=== PATIENT | male | born 1960 | race Caucasian/White ===

== ENCOUNTER → 2020-01-05 | Day surgery (SDC) | payer BC, OTHER ==
[2019-12-31 10:18] LABS: BASOPHILS % 0.3 % (0.0-1.0); EOSINOPHILS # (AUTO) 0.2 (0.0-0.4); EOSINOPHILS % 3.7 % (0.0-6.0); HEMATOCRIT 41.4 % (38.2-49.6); HEMOGLOBIN 14.2 g/dL (14.0-18.0); LYMPHOCYTES # (AUTO) 2.1 (1.0-3.2); LYMPHOCYTES % 32.7 % (18.0-39.1); MEAN CORPUSCULAR HEMOGLOBIN 30.2 pg (28-32); MEAN CORPUSCULAR HGB CONC 34.3 g/dL (31-35); MEAN CORPUSCULAR VOLUME 88.1 fL (81-99); MONOCYTES # (AUTO) 0.7 (0.2-0.8); MONOCYTES % 10.9 % (4.4-11.3); NEUTROPHILS # (AUTO) 3.4 (2.1-6.9); NEUTROPHILS % 52.1 % (38.7-80.0); PLATELET COUNT 272 x10e3/uL (140-360); RED CELL DISTRIBUTION WIDTH 11.8 % (11.7-14.4)
[2019-12-31 14:28] LABS: ALANINE AMINOTRANSFERASE 45 IU/L (0-55); ALBUMIN 4.4 g/dL (3.5-5.0); ALBUMIN/GLOBULIN RATIO 1.4 (0.8-2.0); ALKALINE PHOSPHATASE 60 IU/L (40-150); BLOOD UREA NITROGEN 14 mg/dL (7-26); BUN/CREATININE RATIO 12 (6-25); CALCIUM 9.4 mg/dL (8.4-10.2); CARBON DIOXIDE 24 mmol/L (22-29); CHLORIDE 103 mmol/L (98-107); CREATININE, SERUM 1.16 mg/dL (0.72-1.25); EST GLOMERULAR FILTRATION RATE > 60 ML/MIN (60-); GLUCOSE 141 mg/dL (74-118); SODIUM 140 mmol/L (136-145)
[2020-01-05] VITALS (19 sets, daily range): BP systolic 89–132; BP diastolic 35–74
[~2020-01-05] VITALS: Ht 182.9 cm; Wt 99.8 kg
[~2020-01-05] MED LIST: ALPRAZOLAM 0.5 MG TAB ONE; AMLODIPINE BESYL5 MG PO; ASPIR 8181 MG PO; ASPIRIN 325 MG TAB ONE; BIVALRIUDIN 250 MG/VIAL VIAL IV ONE; CRESTOR10 MG PO; DIPHENHYDRAMINE HCL 25 MG CAP ONE; FENTANYL CITRATE/PF 100MCG/2 ML INJ ONE; HEPARIN SOD/SOD CHLORIDE 2,000 ML ONE; IOPAMIDOL 370 MG/ML 200 ML INFUS..BTL INJ ONE; LIDOCAINE HCL 2% LOCAL 20 ML VIAL ONE; LISINOPRIL10 MG PO; LISINOPRIL2.5 MG PO; METOPROLOL SUCC25 MG; MIDAZOLAM HCL 2 MG/2 ML VIAL ONE; SODIUM CHLORIDE 0.9% 1000ML 1,000 ML ONE; SODIUM CHLORIDE 0.9% 50ML 50 ML ONE; TICAGRELOR 90 MG TABLET ONE; VERAPAMIL HCL 2.5 MG/ML 2 ML VIAL ONE
--- NOTE | 2020-01-05 13:09 | Operative Report ---
DATE OF PROCEDURE: 01/05/2020 SURGEON: Sean Palomares MD INDICATION: Coronary artery disease, angina with abnormal stress test. COMPLICATIONS: None. BLOOD LOSS: Minimal. RECOMMENDATIONS: Dual antiplatelet therapy for at least 6 months. PROCEDURES PERFORMED: 1. Ultrasound-guided access in the right radial artery with sheath placement. 2. Conscious sedation administration, hemodynamic neurological monitoring in recovery by cardiac catheterization technologist RN, supervision by MD, 65 minutes. 3. Left heart catheterization, selective coronary angiography. 4. Stent placement in mid left anterior descending artery. 5. Deployment of right wrist TR band. DESCRIPTION OF PROCEDURE: Access obtained in the right radial artery using ultrasound guidance, a 5-[place] sheath was placed. Coronary angiography demonstrated calcified left coronary system. Circumflex was dominant, [place] circumflex 50% stenosis, remaining vessels had diffuse 30% to 50% stenosis. Left anterior descending artery was calcified, mid left anterior descending artery 70% to 80% stenosis proximally, 30% to 50% stenosis. Right coronary artery was codominant 30% to 50% stenosis diffusely. LV end-diastolic pressure of 10. No gradient across the aortic valve on pullback. A decision was made to intervene on the left anterior descending artery. The patient received intravenous Angiomax, oral prasugrel, and aspirin for anticoagulation. The left main was cannulated using an EBU 3.755-[place] guiding catheter. A short BMW wire was advanced for support. Primary stent 2.5 x 20 mm Synergy was deployed at 22 atmospheres. Excellent end result, less than 10% residual stenosis, ROCHELLE-3 flow. No complications. Wire and guide sheath removed. TR band applied. The patient discharged home same day. Sean Palomares MD [facility] /[id number]
--- NOTE | 2020-01-05 16:15 | NUR ---
IV to left forearm removed and dressing placed per unit protocol. Dressing to right wrist is clean, dry, and intact. Right wrist support in place. Patient discharged to private vehicle with Patient's son's girlfriend Araceli Nguyen as six horse hitch driver. Patient discharged with belongings. No distress noted at time of discharge.
== END | disposition home or self-care (01) ==
LOC: CATH LAB 05:51
PROVIDERS: ATTEND Internal Medicine Interventional Cardiology
DX: I25.119 Atherosclerotic heart disease of native coronary artery with unspecified angina pectoris (principal); R94.39 Abnormal result of other cardiovascular function study; I10 Essential (primary) hypertension; Z01.812 Encounter for preprocedural laboratory examination; Z11.59 Encounter for screening for other viral diseases
CPT/HCPCS: 36415; 76937; 80053; 85025; 87635; 92928; 93458; C1887; C1894; J0583; J2001; J2250; J3010; J7030; Q9967; 99152; 99153

== ENCOUNTER → 2022-10-09 | Day surgery (SDC) | payer BC ==
[2022-10-05 10:29] LABS: BASOPHILS % 0.4 % (0.0-1.0); EOSINOPHILS # (AUTO) 0.3 (0.0-0.4); EOSINOPHILS % 4.8 % (0.0-6.0); HEMATOCRIT 40.3 % (38.2-49.6); HEMOGLOBIN 13.7 g/dL (14.0-18.0); LYMPHOCYTES # (AUTO) 2.1 (1.0-3.2); LYMPHOCYTES % 37.1 % (18.0-39.1); MEAN CORPUSCULAR HEMOGLOBIN 30.5 pg (28-32); MEAN CORPUSCULAR VOLUME 89.8 fL (81-99); MONOCYTES # (AUTO) 0.7 (0.2-0.8); MONOCYTES % 11.9 % (4.4-11.3); NEUTROPHILS # (AUTO) 2.6 (2.1-6.9); NEUTROPHILS % 45.6 % (38.7-80.0); PLATELET COUNT 252 x10e3/uL (140-360); RED BLOOD COUNT 4.49 x10e6/uL (4.3-5.7); RED CELL DISTRIBUTION WIDTH 11.6 % (11.7-14.4)
[2022-10-05 10:52] LABS: ALBUMIN 4.2 g/dL (3.5-5.0); ALBUMIN/GLOBULIN RATIO 1.4 (0.8-2.0); CALCIUM 9.9 mg/dL (8.4-10.2); CHOL/HDL RATIO 5.5 (3.9-4.7); CREATININE, SERUM 1.07 mg/dL (0.72-1.25)
[~2022-10-09] VITALS: Ht 182.9 cm; Wt 104.3 kg
[2022-10-09] VITALS (21 sets, daily range): BP systolic 106–130; BP diastolic 59–84
[~2022-10-09] MED LIST changes: +HEPARIN SOD (PORCINE) 1000 UNIT/ML 30ML ONE; +IOPAMIDOL 370 MG/ML 100 ML INFUS..BTL INJ ONE; -IOPAMIDOL 370 MG/ML 200 ML INFUS..BTL INJ ONE; +LOTREL 5-20 MG1 EACH; +METFORMIN HCL500 MG PO; +NITROGLYCERIN/D5W 200 MCG/ML 250 ML ONE; +PRASUGREL 10 MG TAB ONE; +PRISTIQ ER50 MG PO; +REPATHA; -SODIUM CHLORIDE 0.9% 50ML 50 ML ONE; -TICAGRELOR 90 MG TABLET ONE
== END | disposition home or self-care (01) ==
LOC: CATH LAB 14:08
PROVIDERS: ATTEND Internal Medicine Interventional Cardiology
DX: I25.118 Atherosclerotic heart disease of native coronary artery with other forms of angina pectoris (principal); I10 Essential (primary) hypertension; E78.00 Pure hypercholesterolemia, unspecified; Z01.812 Encounter for preprocedural laboratory examination; Z79.84 Long term (current) use of oral hypoglycemic drugs; Z79.82 Long term (current) use of aspirin; Z79.899 Other long term (current) drug therapy; Z68.32 Body mass index [BMI] 32.0-32.9, adult
CPT/HCPCS: 36415; 80053; 80061; 83880; 85025; 93454; C1725; C1874; C1887; C1894; J0583; J1644; J2001; J2250; J3010; J7030; Q9967; 92928

== ENCOUNTER → 2024-02-12 | Day surgery (SDC) | payer MEDICARE ==
[2024-02-11 11:12] LABS: BASOPHILS % 0.3 % (0.0-1.0); EOSINOPHILS # (AUTO) 0.3 (0.0-0.4); EOSINOPHILS % 4.2 % (0.0-6.0); HEMATOCRIT 38.5 % (38.2-49.6); HEMOGLOBIN 13.1 g/dL (14.0-18.0); LYMPHOCYTES # (AUTO) 1.9 (1.0-3.2); MEAN CORPUSCULAR HEMOGLOBIN 30.7 pg (28-32); MEAN CORPUSCULAR VOLUME 90.2 fL (81-99); MONOCYTES # (AUTO) 0.7 (0.2-0.8); MONOCYTES % 10.5 % (4.4-11.3); NEUTROPHILS # (AUTO) 3.4 (2.1-6.9); NEUTROPHILS % 54.7 % (38.7-80.0); PLATELET COUNT 285 x10e3/uL (140-360); RED BLOOD COUNT 4.27 x10e6/uL (4.3-5.7); RED CELL DISTRIBUTION WIDTH 11.9 % (11.7-14.4); WHITE BLOOD COUNT 6.19 x10e3/uL (4.8-10.8)
[2024-02-11 11:28] LABS: ANION GAP 13.9 mmol/L (8-16); CALCIUM 9.5 mg/dL (8.4-10.2); CREATININE, SERUM 1.1 mg/dL (0.72-1.25); POTASSIUM 3.9 mmol/L (3.5-5.1)
[~2024-02-12] MED LIST changes: +ACETAMINOPHEN 1000 MG/100 ML IV ONE; -ALPRAZOLAM 0.5 MG TAB ONE; -ASPIRIN 325 MG TAB ONE; -BIVALRIUDIN 250 MG/VIAL VIAL IV ONE; +CEFTRIAXONE 1 GM VIAL ONE; +CLOPIDOGREL75 MG PO; +DEXAMETHASONE SOD PHOS INJ 4 MG/ML SDV ONE; -DIPHENHYDRAMINE HCL 25 MG CAP ONE; +FLOMAX0.4 MG PO; +GENTAMICIN 80MG/NS 100 ML 200 ML IV ONE; -HEPARIN SOD (PORCINE) 1000 UNIT/ML 30ML ONE; -HEPARIN SOD/SOD CHLORIDE 2,000 ML ONE; -IOPAMIDOL 370 MG/ML 100 ML INFUS..BTL INJ ONE; +IOPAMIDOL 610MG/1ML 300 MG/ML VIAL IV ONE; +LACTATED RINGER'S 1,000 ML ONE; -LIDOCAINE HCL 2% LOCAL 20 ML VIAL ONE; +LIDOCAINE HCL 2% LOCAL INJ 5 ML SDV VIAL INJ ONE; -MIDAZOLAM HCL 2 MG/2 ML VIAL ONE; +MULTI-VITAMIN1 EACH PO; -NITROGLYCERIN/D5W 200 MCG/ML 250 ML ONE; +ONDANSETRON HCL INJ 2MG/ML 2ML 2 MG/ML VIAL ONE; +PHENAZOPYRIDINE HCL 100 MG TAB ONE; -PRASUGREL 10 MG TAB ONE; +PROPOFOL IV EMULSION 10 MG/ML 20 ML VIAL ONE; -REPATHA; +REPATHA IM; +SEVOFLURANE INHAL SOLN 250 ML PEN BTL ONE; -SODIUM CHLORIDE 0.9% 1000ML 1,000 ML ONE; -VERAPAMIL HCL 2.5 MG/ML 2 ML VIAL ONE; +VESICARE5 MG PO; +VITAMIN D3 COM1 EACH PO; +tylenol #3 PO
[2024-02-12] MEDS: PHENAZOPYRIDINE HCL 100 MG TAB PO ONE (15:13)
[2024-02-12 15:15] VITALS: TEMP 98.3
[2024-02-12 15:35] VITALS: BP 147/78; PULSE 61; RESP 16; O2SAT 99
== END | disposition home or self-care (01) ==
LOC: OR 07:59
PROVIDERS: ATTEND Urology
DX: N20.0 Calculus of kidney (principal); Z46.6 Encounter for fitting and adjustment of urinary device; N40.0 Benign prostatic hyperplasia without lower urinary tract symptoms; E11.9 Type 2 diabetes mellitus without complications; I10 Essential (primary) hypertension; E78.5 Hyperlipidemia, unspecified; Z01.812 Encounter for preprocedural laboratory examination; Z01.818 Encounter for other preprocedural examination; Z79.02 Long term (current) use of antithrombotics/antiplatelets; Z79.82 Long term (current) use of aspirin; Z79.84 Long term (current) use of oral hypoglycemic drugs; Z79.899 Other long term (current) drug therapy
CPT/HCPCS: 36415 ×2; 52356; 71046; 74018; 74420; 80048; 82948; 84550; 85025; 88300; C1766; C2617; J0131; J0696; J1100; J1580; J2001; J2405; J2704; J3010; J7121; Q9967

== ENCOUNTER → 2024-04-17 | Day surgery (SDC) | payer MEDICARE ==
[2024-04-15 12:46] LABS: BASOPHILS % 0.3 % (0.0-1.0); EOSINOPHILS # (AUTO) 0.3 (0.0-0.4); EOSINOPHILS % 5.1 % (0.0-6.0); HEMATOCRIT 38.3 % (38.2-49.6); HEMOGLOBIN 12.8 g/dL (14.0-18.0); LYMPHOCYTES # (AUTO) 1.8 (1.0-3.2); LYMPHOCYTES % 29.7 % (18.0-39.1); MEAN CORPUSCULAR HEMOGLOBIN 30.5 pg (28-32); MEAN CORPUSCULAR HGB CONC 33.4 g/dL (31-35); MEAN CORPUSCULAR VOLUME 91.2 fL (81-99); MONOCYTES # (AUTO) 0.6 (0.2-0.8); MONOCYTES % 9.8 % (4.4-11.3); NEUTROPHILS # (AUTO) 3.3 (2.1-6.9); NEUTROPHILS % 54.9 % (38.7-80.0); PLATELET COUNT 274 x10e3/uL (140-360); RED CELL DISTRIBUTION WIDTH 11.8 % (11.7-14.4); WHITE BLOOD COUNT 5.93 x10e3/uL (4.8-10.8)
[2024-04-15 13:03] LABS: ANION GAP 14.8 mmol/L (8-16); CALCIUM 9.8 mg/dL (8.4-10.2); CREATININE, SERUM 1.15 mg/dL (0.72-1.25); POTASSIUM 3.8 mmol/L (3.5-5.1)
[~2024-04-17] MED LIST changes: -PHENAZOPYRIDINE HCL 100 MG TAB ONE
[2024-04-17] MEDS: PHENAZOPYRIDINE HCL 100 MG TAB ONE (14:40)
[2024-04-17 16:30] VITALS: BP 148/81; PULSE 60; RESP 16; O2SAT 99
== END | disposition home or self-care (01) ==
LOC: OR 11:15
PROVIDERS: ATTEND Urology
DX: N20.1 Calculus of ureter (principal); Z46.6 Encounter for fitting and adjustment of urinary device; N40.1 Benign prostatic hyperplasia with lower urinary tract symptoms; N13.8 Other obstructive and reflux uropathy; R39.14 Feeling of incomplete bladder emptying; N28.1 Cyst of kidney, acquired; N20.0 Calculus of kidney; N28.89 Other specified disorders of kidney and ureter; I10 Essential (primary) hypertension; E78.5 Hyperlipidemia, unspecified; E11.9 Type 2 diabetes mellitus without complications; Z01.810 Encounter for preprocedural cardiovascular examination; Z01.812 Encounter for preprocedural laboratory examination; Z01.818 Encounter for other preprocedural examination; Z79.02 Long term (current) use of antithrombotics/antiplatelets; Z79.82 Long term (current) use of aspirin; Z79.84 Long term (current) use of oral hypoglycemic drugs; Z79.899 Other long term (current) drug therapy; Z68.30 Body mass index [BMI] 30.0-30.9, adult; Z95.5 Presence of coronary angioplasty implant and graft; Z80.42 Family history of malignant neoplasm of prostate
CPT/HCPCS: 36415; 52351; 74018; 74420; 80048; 85025; 93005; C1769; J0131; J0696; J1100; J1580; J2001; J2405; J2704; J3010; J7121; Q9967

== ENCOUNTER → 2024-12-31 | Outpatient (REF) | payer MEDICARE ==
[~2024-12-31] MED LIST changes: -ACETAMINOPHEN 1000 MG/100 ML IV ONE; -CEFTRIAXONE 1 GM VIAL ONE; -DEXAMETHASONE SOD PHOS INJ 4 MG/ML SDV ONE; -FENTANYL CITRATE/PF 100MCG/2 ML INJ ONE; -GENTAMICIN 80MG/NS 100 ML 200 ML IV ONE; -IOPAMIDOL 610MG/1ML 300 MG/ML VIAL IV ONE; -LACTATED RINGER'S 1,000 ML ONE; -LIDOCAINE HCL 2% LOCAL INJ 5 ML SDV VIAL INJ ONE; -ONDANSETRON HCL INJ 2MG/ML 2ML 2 MG/ML VIAL ONE; -PROPOFOL IV EMULSION 10 MG/ML 20 ML VIAL ONE; -SEVOFLURANE INHAL SOLN 250 ML PEN BTL ONE
== END ==
LOC: RAD 13:27
PROVIDERS: ATTEND Urology
DX: N20.0 Calculus of kidney (principal)
CPT/HCPCS: 74018